=== PATIENT | female | born 1995 | race Two or more races ===

== ENCOUNTER 2018-07-10 12:52 | Observation (INO) | payer MEDICAID, OTHER ==
[~2018-07-10] VITALS: Ht 157.5 cm; Wt 63.5 kg
[2018-07-10 13:08] VITALS: BP 129/87
[2018-07-10] MEDS ORDERED: LACTATED RINGER'S 1,000 ML IV SCH (15:10)
[2018-07-10] MEDS ORDERED: TERBUTALINE SULFATE 1 MG/ML 1ML VIAL SC ONE (15:16)
[2018-07-10] MEDS: TERBUTALINE SULFATE 1 MG/ML 1ML VIAL SC SCH ×2 (15:26→17:31)
[2018-07-10 15:32] LABS: Alcohol, Urine < 3.0 mg/dL (0-5); Amphetamine Screen, Urine NEGATIVE (NEGATIVE); Barbiturate Scree,Urine NEGATIVE (NEGATIVE); Benzodiazephine Screen, Urine NEGATIVE (NEGATIVE); Cannabinoid Screen, Urine NEGATIVE (NEGATIVE); Cocaine Screen, Urine NEGATIVE (NEGATIVE); Opiate Scree,Urine NEGATIVE (NEGATIVE); Phencyclidine Screen, Urine NEGATIVE (NEGATIVE)
== END 2018-07-10 18:50 | disposition home or self-care (01) | DRG 815 ==
LOC: ER 12:52 → LDRP 13:35
PROVIDERS: ADMIT Specialist; ATTEND Specialist
DX: Z04.1 Encounter for examination and observation following transport accident (principal); Z3A.32 32 weeks gestation of pregnancy
CPT/HCPCS: 59025; 76815; 80307; 81002; 96372; 99285; G0378; J3105